=== PATIENT | male | born 1960 | race Caucasian/White ===

== ENCOUNTER 2020-10-15 16:39 | Observation (INO) ==
[2020-10-15 17:17] LABS: Basophils # 0.1 K/mcL (0.0-0.2); Basophils % 0.6 %; Eosinophils # 0.1 K/mcL (0.0-0.6); Eosinophils % 0.9 %; Hematocrit 40.8 % (37.5-50.1); Hemoglobin 13.1 g/dL (12.9-16.9); Immature Granulocytes % 0.5 % (0-4); Lymphocytes # 1.5 K/mcL (0.6-4.6); Lymphocytes % 17.2 %; Mean Corpuscular HGB Conc 32.1 g/dL (31.6-35.5); Mean Corpuscular Hemoglobin 25.9 pg (28.0-33.3); Mean Corpuscular Volume 80.6 fL (83.0-100.0); Mean Platelet Volume 9.8 fL (9.4-12.4); Monocytes # 0.4 K/mcL (0.0-1.3); Neutrophils # 6.4 K/mcL (1.6-8.9); Platelet Count 236 K/mcL (140-400); Red Blood Count 5.06 M/mcL (4.19-5.50); Red Cell Distribution Width 15.6 % (11.5-14.5); Segmented Neutrophils % 75.8 %; White Blood Count 8.4 K/mcL (4.3-11.1)
[2020-10-15 17:36] LABS: BUN/Creatinine Ratio 12 (6-26); Blood Urea Nitrogen 14 mg/dL (8-23); Calcium 9.3 mg/dL (8.6-10.3); Carbon Dioxide 26 mEq/L (23-29); Chloride 104 mEq/L (98-107); Glucose 193 mg/dL (70-105); Osmolality,Calculated 294 (280-300); Potassium 3.1 mEq/L (3.5-5.1); Sodium 139 mEq/L (136-145); eGFR For African Americans > 60 (> 60); eGFR For Non-African Americans > 60 (> 60)
[2020-10-15 18:05] LABS: Bilirubin,Urine Negative (Negative); Blood,Urine Trace (Negative); Clarity,Urine Clear (Clear); Color,Urine Colorless (Yellow); Glucose,Urine (UA) 200 mg/dL (Normal); Ketones,Urine Negative (Negative); Leukocyte Esterase,Urine Negative (Negative); Mucus,Urine Few per lpf (None-Few); Nitrite,Urine Negative (Negative); PH,Urine 7.5 pH Units (5.0-8.0); Protein,Urine 200 mg/dL (Neg-Trace); RBC,Urine 0-3 per hpf (0-3); Specific Gravity,Urine 1.011 (1.010-1.025); Urobilinogen,Urine Normal (Normal); WBC,Urine 0-3 per hpf (0-3)
[2020-10-15] MEDS ORDERED: Isovue-370 500 ML BOTTLE IVP ONE (18:09)
[2020-10-15] MEDS ORDERED: *HR* Labetalol 20 MG/4 ML SYRINGE IVP ONE ×2 (18:12→23:18)
[2020-10-15] MEDS ORDERED: 0.9 % Sodium Chloride 1,000 ML IVC ONE ×2 (18:12→20:41)
[2020-10-15] MEDS ORDERED: *HR* FentaNYL (PF) 100 MCG/2 ML VIAL IVP ONE ×2 (18:12→20:41)
[2020-10-15] MEDS ORDERED: Ondansetron 4 MG/2 ML VIAL IVP ONE (18:12)
[2020-10-15 18:35] LABS: Troponin I < 0.03 ng/mL (< 0.04)
[2020-10-15 19:56] LABS: Alanine Aminotransferase 13 Units/L (7-52); Albumin/Globulin Ratio 1.1 (1.1-2.2); Alkaline Phosphatase 47 Units/L (34-104); Amylase 58 Units/L (29-103); Aspartate Amino Transferase 23 Units/L (13-39); Bilirubin,Direct 0.1 mg/dL (0.0-0.2); Bilirubin,Indirect 0.3 mg/dL (0.0-1.0); Bilirubin,Total 0.4 mg/dL (0.3-1.0); Globulin 3.5 g/dL (2.4-3.5); Lipase 154 Units/L (11-82); Total Protein 7.5 g/dL (6.4-8.9)
[2020-10-15] MEDS ORDERED: 0.9 % Sodium Chloride 1,000 ML IVC SCH (22:00)
[2020-10-16] MEDS: Morphine Sulfate 2 MG/ML SYRINGE IVP PRN ×4 (00:34→15:59)
[2020-10-16] MEDS ORDERED: Morphine Sulfate 2 MG/ML SYRINGE IVP ONE (04:15)
[2020-10-16] MEDS ORDERED: Ondansetron 4 MG/2 ML VIAL IVP ONE (04:17)
[2020-10-16] MEDS ORDERED: Naloxone 0.4 MG/ML INJ IVP PRN (05:17)
[2020-10-16] MEDS ORDERED: *HR* Labetalol 20 MG/4 ML SYRINGE IVP PRN (05:19)
[2020-10-16] MEDS ORDERED: Dextrose Gel 15 GM/37.5 ML TUBE PO PRN ×2 (05:47)
[2020-10-16] MEDS ORDERED: *HR* Dextrose 50 % in Water (Vial) 50 ML VIAL IVP PRN (05:47)
[2020-10-16] MEDS ORDERED: D5% in Water 1,000 ML IVC PRN ×2 (05:47→19:24)
[2020-10-16] MEDS: *HR* Heparin 5,000 UNIT/ML VIAL SQ SCH ×2 (06:35→18:40)
[2020-10-16] MEDS: Insulin LISPRO 300 UNITS/3 ML VIAL SUBQ SCH ×4 (06:35→22:14)
[2020-10-16 08:19] LABS: BUN/Creatinine Ratio 12 (6-26); Blood Urea Nitrogen 11 mg/dL (8-23); Carbon Dioxide 25 mEq/L (23-29); Chloride 107 mEq/L (98-107); Glucose 129 mg/dL (70-105); Osmolality,Calculated 293 (280-300); Potassium 3.1 mEq/L (3.5-5.1); Sodium 141 mEq/L (136-145); eGFR For African Americans > 60 (> 60); eGFR For Non-African Americans > 60 (> 60)
[2020-10-16] MEDS ORDERED: Nitroglycerin 0.4 MG TAB.SUBL SL ONE (09:08)
[2020-10-16] MEDS ORDERED: Nitroglycerin 0.4 MG TAB.SUBL SL PRN (09:15)
[2020-10-16] MEDS: Nitroglycerin Spray 4.9 GM BOTTLE TL PRN ×2 (09:24→09:36)
[2020-10-16] MEDS ORDERED: Isovue-370 500 ML BOTTLE IVP ONE (09:39)
[2020-10-16] MEDS: Aspirin 81 MG TAB.CHEW PO SCH (09:45)
[2020-10-16] MEDS ORDERED: *HR* Metoprolol 5 MG/5 ML VIAL IVP ONE ×2 (10:23→10:31)
[2020-10-16 10:25] LABS: BUN/Creatinine Ratio 14 (6-26); Blood Urea Nitrogen 12 mg/dL (8-23); Calcium 8.9 mg/dL (8.6-10.3); Carbon Dioxide 25 mEq/L (23-29); Chloride 107 mEq/L (98-107); Glucose 135 mg/dL (70-105); Lipase 93 Units/L (11-82); Magnesium 1.6 mg/dL (1.6-2.6); Osmolality,Calculated 292 (280-300); Phosphorous 2.9 mg/dL (2.7-4.5); Sodium 140 mEq/L (136-145); eGFR For African Americans > 60 (> 60); eGFR For Non-African Americans > 60 (> 60)
[2020-10-16 10:38] LABS: Thyroid Stimulating Hormone 1.207 mcIU/mL (0.340-5.600)
[2020-10-16] MEDS: Pantoprazole 40 MG VIAL IVP SCH (11:13)
[2020-10-16] MEDS: Ondansetron 4 MG/2 ML VIAL IVP PRN (11:30)
[2020-10-16 12:36] LABS: Basophils % 0.5 %; Eosinophils # 0.1 K/mcL (0.0-0.6); Immature Granulocytes % 0.4 % (0-4); Lymphocytes # 1.5 K/mcL (0.6-4.6); Mean Corpuscular HGB Conc 31.9 g/dL (31.6-35.5); Mean Corpuscular Hemoglobin 25.9 pg (28.0-33.3); Mean Corpuscular Volume 81.1 fL (83.0-100.0); Mean Platelet Volume 9.6 fL (9.4-12.4); Monocytes # 0.6 K/mcL (0.0-1.3); Monocytes % 7.4 %; Neutrophils # 5.7 K/mcL (1.6-8.9); Platelet Count 233 K/mcL (140-400); Red Blood Count 4.44 M/mcL (4.19-5.50); Red Cell Distribution Width 15.4 % (11.5-14.5); Segmented Neutrophils % 71.7 %
[2020-10-16 12:40] LABS: Hemoglobin 11.5 g/dL (12.9-16.9)
[2020-10-16] MEDS ORDERED: Perflutren Lipid Microsphere 1.3 ML in 0.9 % Sodium Chloride 8.7 ML IVP PRN (15:31)
[2020-10-16] MEDS: carvediloL 25 MG TABLET PO SCH (18:40)
[2020-10-16] MEDS ORDERED: *HR* LORazepam 0.5 MG TABLET PO PRN (18:40)
[2020-10-16] MEDS ORDERED: *HR* LORazepam 1 MG TABLET PO PRN (18:40)
[2020-10-16] MEDS ORDERED: hydrOXYzine pamoate 25 MG CAPSULE PO PRN (19:24)
[2020-10-16] MEDS: Cholestyramine 4 GM POWD.PACK PO SCH (22:12)
[2020-10-16] MEDS: Divalproex (24 HR) 500 MG TABLET PO SCH (22:15)
[2020-10-16] MEDS: Insulin DETEMIR 100 UNIT/ML X5UNITS SUBQ SCH (22:15)
[2020-10-16] MEDS: lisinopriL 5 MG TABLET PO SCH (22:15)
[2020-10-16] MEDS: Melatonin 3 MG TABLET PO PRN (22:27)
[2020-10-17 01:33] LABS: BUN/Creatinine Ratio 16 (6-26); Blood Urea Nitrogen 17 mg/dL (8-23); Calcium 8.5 mg/dL (8.6-10.3); Carbon Dioxide 25 mEq/L (23-29); Chloride 106 mEq/L (98-107); Glucose 81 mg/dL (70-105); Magnesium 1.6 mg/dL (1.6-2.6); Osmolality,Calculated 287 (280-300); Potassium 3.3 mEq/L (3.5-5.1); Sodium 138 mEq/L (136-145); eGFR For African Americans > 60 (> 60); eGFR For Non-African Americans > 60 (> 60)
[2020-10-17] MEDS: Ondansetron 4 MG/2 ML VIAL IVP PRN ×2 (02:30→18:49)
[2020-10-17] MEDS: *HR* Heparin 5,000 UNIT/ML VIAL SQ SCH ×2 (05:22→17:55)
[2020-10-17] MEDS: Insulin LISPRO 300 UNITS/3 ML VIAL SUBQ SCH ×3 (07:13→17:30)
[2020-10-17] MEDS: carvediloL 25 MG TABLET PO SCH ×2 (08:30→16:23)
[2020-10-17] MEDS: Aspirin 81 MG TAB.CHEW PO SCH (08:30)
[2020-10-17] MEDS: Divalproex (24 HR) 500 MG TABLET PO SCH ×2 (08:30→19:46)
[2020-10-17] MEDS: Pantoprazole 40 MG VIAL IVP SCH (08:31)
[2020-10-17] MEDS: lisinopriL 5 MG TABLET PO SCH (08:31)
[2020-10-17] MEDS: Cholestyramine 4 GM POWD.PACK PO SCH ×2 (08:31→19:47)
[2020-10-17] MEDS: Budesonide/Formoterol 160/4.5 1 PUFF INH IH SCH ×2 (08:32→20:10)
[2020-10-17] MEDS ORDERED: amLODIPine 5 MG TABLET PO SCH (09:00)
[2020-10-17] MEDS ORDERED: Tiotropium 10 INH DOSE IH SCH (10:00)
[2020-10-17] MEDS ORDERED: Perphenazine 8 MG TABLET PO SCH ×3 (16:59→21:00)
[2020-10-17 17:09] VITALS: BP 175/96
[2020-10-17] MEDS ORDERED: *HR* OxyCODONE/APAP 5/325 TABLET PO PRN (17:59)
[2020-10-17] MEDS: Melatonin 3 MG TABLET PO PRN (19:45)
[2020-10-17] MEDS: Insulin DETEMIR 100 UNIT/ML X5UNITS SUBQ SCH (19:53)
[2020-10-17] MEDS ORDERED: lisinopriL 10 MG TABLET PO SCH (21:00)
[2020-10-17] MEDS ORDERED: lisinopriL 5 MG TABLET PO SCH (21:00)
[2020-10-17] MEDS ORDERED: Sucralfate 1 GM TABLET PO SCH (21:00)
[2020-10-18] MEDS ORDERED: Perphenazine 8 MG TABLET PO SCH (09:00)
== END 2020-10-17 21:20 | disposition short-term general hospital (02) ==
LOC: 3ANU 16:39 → EMEROOARM 16:39 → 3ANU 10-16 06:03 → 2NNU 10-16 11:53
PROVIDERS: ADMIT Student in an Organized Health Care Education/Training Program; ATTEND Student in an Organized Health Care Education/Training Program